=== PATIENT | female | born 1980 | race Caucasian/White ===

== ENCOUNTER → 2017-09-13 | Outpatient (REF) | payer OTHER ==
[~2017-09-13] MED LIST: ACET30TAB PO; ACET50TA PO; ALEV220T26 PO; CHIL100S4 PO; CLIN150C14 PO; IBUP80TA PO; PENI50TA PO; PRED20TA PO
[2017-09-13 17:32] LABS: AMYLASE 37 U/L (25-115)
== END ==
LOC: M LAB REF 16:50
PROVIDERS: ATTEND Nurse Practitioner Adult Health
DX: R11.2 Nausea with vomiting, unspecified (principal); R10.11 Right upper quadrant pain

== ENCOUNTER → 2017-09-15 | Outpatient (REF) | payer OTHER | LOC: M LAB REF 09:12 | PROVIDERS: ATTEND Nurse Practitioner Adult Health | DX: R11.2 Nausea with vomiting, unspecified (principal); R10.11 Right upper quadrant pain ==

== ENCOUNTER → 2018-06-28 | Outpatient (CLI) | payer OTHER | LOC: M WUC 08:35 | DX: M79.671 Pain in right foot (principal) | CPT/HCPCS: 73660 ==

== ENCOUNTER → 2019-11-17 | Outpatient (CLI) | payer OTHER ==
[~2019-11-17] MED LIST changes: +ACET-716 PO; -ACET30TAB PO; -ACET50TA PO; -CHIL100S4 PO; +IBUP100S57 PO; +MAPA500T17 PO; +PENI500T PO; -PENI50TA PO
--- NOTE | 2019-11-17 11:56 | REP ---
LEFT FOURTH AND FIFTH TOES: Four views of the fourth and fifth toes performed. There is a nondisplaced fracture of the fifth proximal phalanx. I see no other evidence of acute fracture, dislocation, or intrinsic bone disease. Electronically Signed by Kunal Zee MD 11/17/2019 05:51 P
== END ==
LOC: M WUC 10:20
PROVIDERS: ATTEND Physician Assistant
DX: S90.222A Contusion of left lesser toe(s) with damage to nail, initial encounter (principal); W18.30XA Fall on same level, unspecified, initial encounter; Y92.009 Unspecified place in unspecified non-institutional (private) residence as the place of occurrence of the external cause

== ENCOUNTER → 2020-11-23 | Outpatient (CLI) | payer SELFPAY ==
[~2020-11-23] MED LIST changes: -CLIN150C14 PO; +CLIN150C15 PO
== END ==
LOC: M LABSMTC 12:38
PROVIDERS: ATTEND Pediatrics
DX: Z20.822 Contact with and (suspected) exposure to COVID-19 (principal)

== ENCOUNTER → 2021-09-06 | Outpatient (REF) | payer OTHER ==
[~2021-09-06] MED LIST changes: -CLIN150C15 PO; +CLIN150C17 PO; +IBUP-1824 PO; -IBUP100S57 PO
[2021-09-08 18:37] LABS: PERCENT SATURATION 7.9 % (13.2-45.0)
[2021-09-08 19:35] LABS: FOLATE 5.2 NG/ML (>5.4)
== END ==
LOC: M LAB REF 17:30
PROVIDERS: ATTEND Nurse Practitioner Adult Health
DX: D64.9 Anemia, unspecified (principal)

== ENCOUNTER → 2021-09-16 | Outpatient (CLI) | payer OTHER ==
--- NOTE | 2021-09-16 14:58 | DEXAMM ---
INDICATION: DX RECENT FRACTURE. COMPARISON: None. TECHNIQUE: Bone density was measured using dual-energy x-ray absorptiometry (DEXA). FINDINGS: AP SPINE L1-L4 BMD 1.517 g/cm2 Young Adult T-Score 2.6 Age Matched Z-Score 2.6. LT FEMUR, TOTAL BMD 1.174 g/cm2 Young Adult T-Score 1.3 Age Matched Z-Score 1.5. LT NECK BMD 1.124 g/cm2 Young Adult T-Score 0.6 Age Matched Z-Score 1.0. RT FEMUR, TOTAL BMD 1.203 g/cm2 Young Adult T-Score 1.6 Age Matched Z-Score 1.8. RT NECK BMD 1.163 g/cm2 Young Adult T-Score 0.9 Age Matched Z-Score 1.3. IMPRESSION: There is normal bone density of the spine. There is normal bone density of the left hip. There is normal bone density of the right hip. FOLLOW-UP: Recommendation for the next bone density exam: 5 years. <Electronically signed by Kunal Zee > 09/16/21 [id number]
== END ==
LOC: M WHC 10:10
PROVIDERS: ATTEND Nurse Practitioner Adult Health
DX: Z87.81 Personal history of (healed) traumatic fracture (principal)